=== PATIENT | female | born 1960 | race African-American/Black ===

== ENCOUNTER 2022-12-16 14:34 | Emergency (ER) | payer MEDICARE, OTHER ==
--- NOTE | 2022-12-16 14:52 | ED Physician Documentation ---
History of Present Illness - Stated complaint Stated Complaint: NECK PX,NUMBNESS - Chief complaint Chief Complaint: General - History obtained from History obtained from: Patient - Additonal information Additional information: 62-year-old woman with history of hypertension and monitored AAA presents with right-sided neck pain starting yesterday. She thinks she slept on it wrong. It is particular painful if she rotates her neck. There is no weakness numbness or tingling in the right arm but she does have some tingling in the right neck. She had a similar issue in the past but on the other side. PD PAST MEDICAL HISTORY - Past Medical History Cardiovascular: Hypertension, High cholesterol, Other Respiratory: Asthma Psych: Anxiety - Past Surgical History Past Surgical History: No - Present Medications Home Medications: Ambulatory Orders Medication Instructions Recorded Confirmed Buspirone HCl 10 mg PO DAILY 03/10/13 04/20/15 Citalopram [CeleXA] 20 mg PO DAILY 03/10/13 04/20/15 Amlodipine Besylate [Amlodipine 10 mg PO DAILY 04/20/15 04/20/15 Besilate] Atorvastatin [Lipitor] 40 mg PO DAILY 04/20/15 04/20/15 Labetalol [Trandate] 200 mg PO BID 04/20/15 04/20/15 hydroCHLOROthiazide 25 mg PO DAILY 04/20/15 04/20/15 [Hydrochlorothiazide] polyethylene glycoL 3350(BULK) 17 gm PO DAILY PRN #1 bottle 04/20/15 [Miralax] Cyclobenzaprine [Flexeril] 10 mg PO TID PRN #20 tablet 12/16/22 HYDROcod/ACETAM 5/325 [[place] 5/325] 1 - 2 tab PO Q6H PRN #15 tablet 12/16/22 Ibuprofen [Motrin] 800 mg PO Q8H PRN #14 tablet 12/16/22 - Allergies Allergies/Adverse Reactions: Allergies Allergy/AdvReac Type Severity Reaction Status Date / Time lisinopril AdvReac Respiratory Verified 12/16/22 14:38 - Social History Does the pt smoke?: Yes Smoking Status: Current every day smoker Does the pt drink ETOH?: No Does the pt have substance abuse?: No - Immunizations Immunizations are current?: Yes - POLST Patient has POLST: No PD ED PE NORMAL - Vitals Vital signs reviewed: Yes - General General: Alert and oriented X 3, No acute distress - Neck Neck: Other (She has a lot of pain with rotation of the neck. There is kind of diffuse tenderness of the sternocleidomastoid and shoulder musculature on the right.) - Extremities Extremities: Other (Normal equal bilateral gill net stringer strength, thumb extension, interosseous strength, and flexion extension of the wrist with normal sensation throughout the upper extremities that is symmetric.) - Neuro Neuro: Alert and oriented X 3, Normal speech - Psych Psych: Normal mood, Normal affect Results - Vitals Vitals: Vital Signs - 24 hr 12/16/22 14:38 Temperature 36.5 C Heart Rate 60 Respiratory 18 Rate Blood Pressure 160/86 H O2 Saturation 97 Oxygen O2 Source Room air PD Medical Decision Making - ED course ED course: 62-year-old woman with what seems like neck muscle spasm. Less likely would be radiculopathy. It is very motion related so doubt a more serious etiology such as anginal equivalent. She was treated in the department with 60 mg of IM Toradol and 1 mg of IM Dilaudid. Departure - Departure Disposition: 01 Home, Self Care Clinical Impression: Neck muscle spasm Condition: Good Record reviewed to determine appropriate education?: Yes Instructions: ED Neck Pain No Trauma Prescriptions: Cyclobenzaprine [Flexeril] 10 mg PO TID PRN #20 tablet PRN Reason: Spasms Ibuprofen [Motrin] 800 mg PO Q8H PRN #14 tablet PRN Reason: PAIN &/OR FEVER HYDROcod/ACETAM 5/325 [[place] 5/325] 1 - 2 tab PO Q6H PRN #15 tablet PRN Reason: Pain Comments: I sent your prescription electronically to [facility] in [place]. Follow-up with your doctor for further evaluation and treatment. Return for new or worsening symptoms. I am prescribing a short course of narcotic pain medication for you. These are potentially dangerous and addictive medications that should be used carefully. These medications may constipate you. Take an [id number] stool softener (docusate) twice daily with plenty of water while taking these medications. If you go 24 hours without a bowel movement, take [id number] miralax, per package instructions. Do not drink or drive while taking these medications. If you received narcotic or sedating medications while in the emergency department, do not drive for 24 hours. Store this medication in a safe, secure place and out of reach of children. It is a violation of federal law to give or sell this medication to another person or to use in a manner other than prescribed. The ED will not refill narcotic prescriptions, including prescriptions lost or stolen. To dispose of unwanted medications: 1. [facility] for medication in pill form only (no liquids) 8:00 am to 4:30 p.m. Friday-Friday in the lobby of the [facility] [place], [address] [place] [address]. Empty pills into ziplock bag before disposal. Call [phone] for information. 2.[employer] is a free service available to all [facility] residents. Go to [email or web address] Note that many narcotic pain relievers also contain Tylenol/acetaminophen. Please ensure that your total dose of acetaminophen from all sources does not exceed 3 g (3000 mg) per day.
[2022-12-16 14:54] VITALS: BP 160/86
[2022-12-16] MEDS: HYDROmorphone 1 MG/ML CARPUJECT IM STA (15:09)
[2022-12-16] MEDS: KETOROLAC 60 MG/2 ML VIAL IM STA (15:09)
== END 2022-12-16 15:26 | disposition home or self-care (01) ==
LOC: ED 14:34
DX: M62.838 Other muscle spasm (principal); F17.200 Nicotine dependence, unspecified, uncomplicated
CPT/HCPCS: 96372; 99283; J1170